=== PATIENT | male | born 1985 | race Caucasian/White ===

== ENCOUNTER 2019-09-22 10:39 | Emergency (ER) | payer MEDICARE, OTHER ==
[~2019-09-22] VITALS: Ht 180.3 cm; Wt 89.2 kg
--- NOTE | 2019-09-22 11:03 | NUR ---
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
--- NOTE | 2019-09-22 11:18 | NUR ---
PT WITH REPORTS ABD PAIN LUQ APPROX 0700. PT ALSO WITH OF N/V 0800, PT REPORTS UNABLE TO KEEP FLUIDS DOWN, PT WITH NO REPORT OF DIARRHEA. PT WITH NO REPORTS OF URINARY SYMPTOMS, NO FEVER
[2019-09-22] MEDS ORDERED: MORPHINE SULFATE 4 MG/ML, 1ML ONE (11:24)
[2019-09-22] MEDS ORDERED: ONDANSETRON 2MG/ML, 2ML ONE (11:24)
[2019-09-22] MEDS ORDERED: ONDANSETRON 2MG/ML, 2ML IVPush ONE (11:30)
[2019-09-22] MEDS ORDERED: MORPHINE SULFATE 4 MG/ML, 1ML IVPush PRN (11:30)
[2019-09-22] MEDS ORDERED: SODIUM CHLORIDE FLUSH 10ML SYR IVF ONE (11:30)
--- NOTE | 2019-09-22 11:54 | NUR ---
PIV INITIATED, PT MEDICATED PER MAR
[2019-09-22 12:11] LABS: BASOPHILS # (AUTO) 0.03 x10^3/uL (0-0.1); BASOPHILS % (AUTO) 0 % (0-1); EOSINOPHILS # (AUTO) 0.07 x10^3/uL (0-0.4); EOSINOPHILS % (AUTO) 1 % (1-7); LYMPHOCYTES # (AUTO) 1.25 x10^3/uL (1-3.4); LYMPHOCYTES % (AUTO) 10 % (22-44); MD NO; MEAN CORPUSCULAR HEMOGLOBIN 31.9 pg (27.5-34.5); MEAN CORPUSCULAR HGB CONC 33.5 g/dL (33.2-36.2); MEAN CORPUSCULAR VOLUME 95.2 fL (81-97); MEAN PLATELET VOLUME 9.9 fL (7.4-10.4); MONOCYTES # (AUTO) 0.59 x10^3/uL (0.2-0.8); MONOCYTES % (AUTO) 5 % (2-9); NEUTROPHILS % (AUTO) 85 % (42-75); PLATELET COUNT 175 x10^3/uL (130-400); RED BLOOD COUNT 5.07 x10^6/uL (4.38-5.82); RED CELL DISTRIBUTION WIDTH 13.2 % (9.4-14.8)
[2019-09-22 12:22] LABS: ALANINE AMINOTRANSFERASE 106 U/L (12-78); ALBUMIN 4.1 g/dL (3.4-5.0); ANION GAP 5 mmol/L (5-15); CALCIUM 9.4 mg/dL (8.5-10.1); CHLORIDE 108 mmol/L (98-107); CREATININE 1.25 mg/dL (0.7-1.3)
[2019-09-22 12:25] LABS: ALKALINE PHOSPHATASE 85 U/L (45-117); BILIRUBIN,TOTAL 0.5 mg/dL (0.2-1.0); TOTAL PROTEIN 7.7 g/dL (6.4-8.2)
[2019-09-22 12:40] LABS: MICROSCOPIC INDICATED
[2019-09-22 12:42] LABS: CULTURE INDICATED? YES
[2019-09-22 13:18] VITALS: BP 107/66
== END 2019-09-22 13:59 | disposition home or self-care (01) ==
LOC: ED 11:57
DX: N13.2 Hydronephrosis with renal and ureteral calculous obstruction (principal); R10.9 Unspecified abdominal pain; R11.2 Nausea with vomiting, unspecified; R63.0 Anorexia
CPT/HCPCS: 36415; 74176; 80053; 81001; 83690; 85025; 87086; 96374; 96375; 99284; J2270; J2405

== ENCOUNTER → 2019-12-16 | Outpatient (CLI) | payer OTHER | END | disposition home or self-care (01) | LOC: CFH 13:49 | PROVIDERS: ATTEND Physician Assistant | DX: N13.2 Hydronephrosis with renal and ureteral calculous obstruction (principal); N28.89 Other specified disorders of kidney and ureter | CPT/HCPCS: 74176 ==

== ENCOUNTER 2019-12-22 11:43 | Day surgery (SDC) | payer OTHER ==
[~2019-12-22] VITALS: Ht 180.3 cm; Wt 89.4 kg
[~2019-12-22 11:43] MED LIST: ROCURONIUM 10 MG/ML,10ML ONE; SUCCINYLCHOLINE 20 MG/ML, 10ML ONE
[2019-12-22] MEDS ORDERED: LACTATED RINGERS 1,000 ML IV SCH (12:21)
[2019-12-22] MEDS ORDERED: TAMS-11 PO (12:22)
[2019-12-22] MEDS ORDERED: IBUP200C8 PO (12:22)
[2019-12-22] MEDS ORDERED: CHLORHEXIDINE 15 ML UDC MM ONE (12:30)
[2019-12-22 12:55] VITALS: BP 98/68
[2019-12-22 13:01] LABS: BASOPHILS # (AUTO) 0.12 x10^3/uL (0-0.1); BASOPHILS % (AUTO) 1 % (0-1); EOSINOPHILS # (AUTO) 0.28 x10^3/uL (0-0.4); EOSINOPHILS % (AUTO) 3 % (1-7); LYMPHOCYTES # (AUTO) 2.42 x10^3/uL (1-3.4); LYMPHOCYTES % (AUTO) 26 % (22-44); MD NO; MEAN CORPUSCULAR HEMOGLOBIN 32.6 pg (27.5-34.5); MEAN CORPUSCULAR HGB CONC 34.2 g/dL (33.2-36.2); MEAN CORPUSCULAR VOLUME 95.4 fL (81-97); MEAN PLATELET VOLUME 10.1 fL (7.4-10.4); MONOCYTES # (AUTO) 0.91 x10^3/uL (0.2-0.8); MONOCYTES % (AUTO) 10 % (2-9); NEUTROPHILS # (AUTO) 5.63 x10^3/uL (1.8-6.8); NEUTROPHILS % (AUTO) 60 % (42-75); PLATELET COUNT 172 x10^3/uL (130-400); RED BLOOD COUNT 4.79 x10^6/uL (4.38-5.82); RED CELL DISTRIBUTION WIDTH 12.9 % (9.4-14.8)
[2019-12-22 13:09] LABS: ANION GAP 7 mmol/L (5-15); CHLORIDE 108 mmol/L (98-107); CREATININE 1.49 mg/dL (0.7-1.3)
[2019-12-22 13:22] LABS: INTERNATIONAL NORMALIZED RATIO 0.97 (0.93-1.1); PROTHROMBIN TIME 10.3 Seconds (9.6-11.5)
[2019-12-22] MEDS ORDERED: FENTANYL PF 100 MCG/2ML ONE ×2 (13:41→15:55)
[2019-12-22] MEDS ORDERED: MIDAZOLAM 1 MG/ML, 2ML ONE (13:42)
[2019-12-22] MEDS ORDERED: OMNIPAQUE 350 MG/ML, 50 ML BOTTLE IV ONE (14:58)
[2019-12-22] MEDS ORDERED: SUGAMMADEX 200 MG/2 ML IVPush ONE (15:12)
[2019-12-22] MEDS ORDERED: PROPOFOL 10 MG/ML, 20ML ONE (15:12)
[2019-12-22] MEDS ORDERED: OXYcodone 5 MG/5 ML ORAL.SOL UDC ONE (15:56)
[2019-12-22] MEDS: FENTANYL PF 100 MCG/2ML IV PRN ×2 (15:59→16:11)
[2019-12-22] MEDS ORDERED: OXYcodone 5 MG/5 ML ORAL.SOL UDC PO PRN (16:00)
[2019-12-22] MEDS ORDERED: hydrALAzine 20 MG/ML, 1ML IV PRN (16:00)
[2019-12-22] MEDS ORDERED: PROMETHAZINE 25 MG/ML, 1ML IVPush PRN (16:00)
[2019-12-22] MEDS ORDERED: LABETALOL 5MG/ML, 20ML IV PRN (16:00)
[2019-12-22] MEDS ORDERED: MEPERIDINE/PF 25MG/0.5ML IVPush PRN (16:00)
[2019-12-22] MEDS ORDERED: HYDROmorphone 1 MG/ML, 1ML INJ ONE (16:23)
[2019-12-22] MEDS: HYDROmorphone 1 MG/ML, 1ML INJ IVPush PRN ×3 (16:25→17:56)
== END 2019-12-22 18:40 | disposition home or self-care (01) ==
LOC: OR 11:43
PROVIDERS: ATTEND Urology
DX: N13.2 Hydronephrosis with renal and ureteral calculous obstruction (principal); Z11.59 Encounter for screening for other viral diseases; N13.4 Hydroureter; F17.210 Nicotine dependence, cigarettes, uncomplicated; Z79.01 Long term (current) use of anticoagulants; Z79.891 Long term (current) use of opiate analgesic; Z79.899 Other long term (current) drug therapy; Z88.8 Allergy status to other drugs, medicaments and biological substances
CPT/HCPCS: 36415; 52356; 74420; 80048; 85025; 85610; 87635; C1726; C1758; C1769; C2617; J0330; J1170; J2250; J2704; J3010; J7120; Q9967

== ENCOUNTER 2020-03-16 14:15 | Observation (INO) | payer OTHER ==
[~2020-03-16] VITALS: Ht 180.3 cm; Wt 91.0 kg
[~2020-03-16 14:15] MED LIST changes: -HYDR-3240 PO
--- NOTE | 2020-03-16 14:27 | NUR ---
SAMMY PIERCE AT .
[2020-03-16] MEDS ORDERED: SODIUM CHLORIDE 0.9% 1,000ML IVBOLUS ONE (14:30)
[2020-03-16] MEDS ORDERED: ONDANSETRON 2MG/ML, 2ML IVPush ONE (14:30)
[2020-03-16] MEDS ORDERED: MORPHINE SULFATE 4 MG/ML, 1ML IVPush PRN (14:30)
[2020-03-16] MEDS ORDERED: CEFOTETAN PMX 2GM/50ML 50 ML IV ONE (14:30)
--- NOTE | 2020-03-16 14:31 | NUR ---
PT AMBULATED TO BR; INSTRUCTED ON CLEAN CATCH URINE SAMPLE. LAST PO INTAKE = LAST NIGHT AT 1900.
[2020-03-16] MEDS ORDERED: METRONIDAZOLE PMX 500MG/100ML 100 ML ONE (14:53)
[2020-03-16] MEDS ORDERED: MORPHINE SULFATE 4 MG/ML, 1ML ONE (14:54)
[2020-03-16] MEDS ORDERED: ONDANSETRON 2MG/ML, 2ML ONE ×2 (14:54→18:51)
[2020-03-16] MEDS ORDERED: METRONIDAZOLE PMX 500MG/100ML 100 ML IV ONE (15:00)
--- NOTE | 2020-03-16 15:06 | NUR ---
PT MEDICATED FOR PAIN. IV BOLUS AND ABX INFUSING. PT UNDERSTANDS POC. AT BS.
[2020-03-16 15:09] LABS: ALBUMIN 4.1 g/dL (3.4-5.0); ANION GAP 7 mmol/L (5-15); CALCIUM 9.6 mg/dL (8.5-10.1); CHLORIDE 106 mmol/L (98-107); CREATININE 1.18 mg/dL (0.7-1.3)
[2020-03-16 15:15] LABS: MICROSCOPIC NOT IND
--- NOTE | 2020-03-16 15:26 | NUR ---
RV'WD PLAN FOR ADMISSION/SURGERY WITH PT, HE VERBALIZES UNDERSTANDING.
[2020-03-16 15:52] LABS: MD YES; MEAN CORPUSCULAR HEMOGLOBIN 31.6 pg (27.5-34.5); MEAN CORPUSCULAR HGB CONC 32.8 g/dL (33.2-36.2); MEAN PLATELET VOLUME 9.8 fL (7.4-10.4); PLATELET COUNT 159 x10^3/uL (130-400); RED BLOOD COUNT 4.86 x10^6/uL (4.38-5.82); RED CELL DISTRIBUTION WIDTH 13.4 % (9.4-14.8)
[2020-03-16 15:55] LABS: BAND#(MANUAL) 0.96 x10^3/uL; BANDS%(MANUAL) 5 % (0-7); LYMPH#(MANUAL) 1.54 x10^3/uL (1-3.4); LYMPHS% (MANUAL) 8 % (22-44); MONOS#(MANUAL) 0.96 x10^3/uL (0.3-2.7); MONOS% (MANUAL) 5 % (2-9); SEG#(MANUAL) 15.74 x10^3/uL (1.8-6.8); SEGS% (MANUAL) 82 % (42-75)
[2020-03-16 15:56] LABS: <PLATELET ESTIMATE> ADEQUATE; <PLT MORPHOLOGY> NORMAL PLT MORPH; <RBC MORPHOLOGY> NORMAL
--- NOTE | 2020-03-16 16:08 | NUR ---
PT SLEEPING, AWAKENS EASILY. REMAINS AT BS. WAITING TO GIVE REPORT TO FLOOR NURSE.
[2020-03-16 17:05] VITALS: BP 119/69
[2020-03-16] MEDS ORDERED: BUPIVACAINE/PF 0.25% ONE (18:22)
[2020-03-16] MEDS ORDERED: FENTANYL PF 250 MCG/5ML ONE (18:22)
[2020-03-16] MEDS ORDERED: ROCURONIUM 10MG/ML,5ML ONE (18:34)
[2020-03-16] MEDS ORDERED: KETOROLAC 30 MG/1 ML ONE (18:34)
[2020-03-16] MEDS ORDERED: CEFOTETAN PMX 2GM/50ML 50 ML ONE (18:44)
[2020-03-16] MEDS ORDERED: DEXAMETHASONE 4 MG/ML, 1ML ONE (18:51)
[2020-03-16] MEDS ORDERED: SUCCINYLCHOLINE 20 MG/ML, 10ML ONE (18:51)
[2020-03-16] MEDS ORDERED: CEFAZOLIN 1,000 MG ONE (18:51)
[2020-03-16] MEDS ORDERED: GLYCOPYRROLATE 0.2MG/1ML, 5ML ONE (18:51)
[2020-03-16] MEDS ORDERED: PROPOFOL 10 MG/ML, 20ML ONE (18:51)
[2020-03-16] MEDS ORDERED: NEOSTIGMINE 1 MG/ML, 10ML ONE (18:51)
[2020-03-16] MEDS ORDERED: BUPIVACAINE/PF 0.25% INFIL ONE (18:58)
[2020-03-16] MEDS ORDERED: FENTANYL PF 100 MCG/2ML ONE ×2 (19:04→19:43)
[2020-03-16] MEDS ORDERED: HYDROmorphone 1 MG/ML, 1ML INJ IVPush PRN (19:30)
[2020-03-16] MEDS ORDERED: hydrALAzine 20 MG/ML, 1ML IV PRN (19:30)
[2020-03-16] MEDS ORDERED: OXYcodone 5 MG/5 ML ORAL.SOL UDC PO PRN (19:30)
[2020-03-16] MEDS ORDERED: HALOPERIDOL 5 MG/ML IV PRN (19:30)
[2020-03-16] MEDS ORDERED: PROMETHAZINE 25 MG/ML, 1ML IVPush PRN (19:30)
[2020-03-16] MEDS ORDERED: MEPERIDINE/PF 25MG/0.5ML IVPush PRN (19:30)
[2020-03-16] MEDS ORDERED: LABETALOL 5MG/ML, 20ML IV PRN (19:30)
[2020-03-16] MEDS ORDERED: DIPHENHYDRAMINE 50 MG/ML, 1ML IVPush PRN (19:30)
[2020-03-16] MEDS ORDERED: OXYcodone 5 MG/5 ML ORAL.SOL UDC ONE (19:43)
[2020-03-16] MEDS: FENTANYL PF 100 MCG/2ML IV PRN ×2 (19:45→19:50)
[2020-03-16] MEDS ORDERED: HYDR-3240 PO (20:47)
[2020-03-16 21:19] VITALS: BP 118/73
== END 2020-03-16 21:50 | disposition home or self-care (01) ==
LOC: ED 14:44 → 4NE 14:56 → ED 14:56 → 4NE 16:26
PROVIDERS: ADMIT Surgery; ATTEND Surgery
DX: K35.30 Acute appendicitis with localized peritonitis, without perforation or gangrene (principal); Z20.828 Contact with and (suspected) exposure to other viral communicable diseases; Z87.442 Personal history of urinary calculi
CPT/HCPCS: 36415; 44970; 80048; 81003; 82040; 85025; 87635; 88304; 96365; 96367; 96375; 99284; C1894; G0378; J0330; J1100; J1885; J2270; J2405; J2704; J2710; J3010; J3490; J7030; J0690

== ENCOUNTER → 2020-03-16 | Outpatient (CLI) | payer OTHER ==
[~2020-03-16] MED LIST changes: +HYDR-3240 PO; +IBUP200C8 PO; -ROCURONIUM 10 MG/ML,10ML ONE; -SUCCINYLCHOLINE 20 MG/ML, 10ML ONE; +TAMS-11 PO
== END | disposition home or self-care (01) ==
LOC: RAD 13:16
PROVIDERS: ATTEND Physician Assistant
DX: K44.9 Diaphragmatic hernia without obstruction or gangrene (principal); K35.80 Unspecified acute appendicitis
CPT/HCPCS: 74176